=== PATIENT | male | born 1990 | race Caucasian/White ===

== ENCOUNTER 2020-03-29 16:38 | Emergency (ER) | payer SELFPAY ==
[~2020-03-29] VITALS: Ht 170.2 cm; Wt 68.0 kg
--- NOTE | 2020-03-29 16:38 | NUR ---
PT BIBRA FROM THE STREET C/O L TOES INJURY. PT IS AAOX4, NOT IN RESPIRATORY DISTRESS, V/S STABLE, KEPT RESTED AND COMFORTABLE. WILL CONTINUE TO MONITOR.
--- NOTE | 2020-03-29 16:54 | NUR ---
SEEN AND EXAMINED BY .
--- NOTE | 2020-03-29 16:55 | NUR ---
ASSISTANT MEN'S LACROSSE COACH AT BEDSIDE FOR XRAY.
[2020-03-29] MEDS ORDERED: HYDROCODONE/APAP 5/325MG TABLET PO ONE (17:00)
[2020-03-29] MEDS ORDERED: HYDROCODONE/APAP 5/325MG TABLET ONE (17:06)
[2020-03-29] MEDS ORDERED: LIDOCAINE /MPF 1% VIAL 5 ML VIAL ONE (17:34)
[2020-03-29] MEDS ORDERED: PROPOFOL 20 ML IV ONE (18:02)
--- NOTE | 2020-03-29 18:45 | NUR ---
, RT AND RN AT BEDSIDE FOR MODERATE SEDATION SET UP.
--- NOTE | 2020-03-29 18:47 | NUR ---
PROPOFOL GIVEN 70MG IVP PER .
--- NOTE | 2020-03-29 18:48 | NUR ---
ADDITIONAL 100MG OF PROPOFOL GIVEN PER .
--- NOTE | 2020-03-29 18:50 | NUR ---
TOES REDUCTION DONE BY .
--- NOTE | 2020-03-29 19:05 | NUR ---
WALKING BOOT APPLIED ON THE LEFT FOOT.
--- NOTE | 2020-03-29 19:29 | NUR ---
IV removed. Catheter intact and site benign. Pressure and 4x4 applied to site. No bleeding noted.
[2020-03-29] MEDS ORDERED: PROPOFOL 200 MG/20 ML VIAL IV ONE ×2 (19:30)
--- NOTE | 2020-03-29 19:34 | NUR ---
Patient discharged to home in stable condition. Written and verbal after care instructions given. Patient verbalizes understanding of instruction.
[2020-03-29 20:18] VITALS: BP 127/83
== END 2020-03-29 20:18 | disposition home or self-care (01) ==
LOC: ER 16:44
DX: S93.125A Dislocation of metatarsophalangeal joint of left lesser toe(s), initial encounter (principal); Z59.0 Homelessness; W22.8XXA Striking against or struck by other objects, initial encounter; Y93.01 Activity, walking, marching and hiking; Y92.89 Other specified places as the place of occurrence of the external cause; Y99.8 Other external cause status
CPT/HCPCS: 28630; 73630 ×2; 99152; 99285; J2704; J3490; J7040; G0500

== ENCOUNTER 2020-04-13 15:45 | Emergency (ER) | payer BC, OTHER ==
[~2020-04-13] VITALS: Ht 170.2 cm; Wt 69.9 kg
[2020-04-13 15:54] VITALS: BP 135/81
== END 2020-04-13 16:12 | disposition home or self-care (01) ==
LOC: ER 15:50
DX: S93.105D Unspecified dislocation of left toe(s), subsequent encounter (principal); Z59.0 Homelessness; X58.XXXD Exposure to other specified factors, subsequent encounter